=== PATIENT | female | born 1980 | race Caucasian/White ===

== ENCOUNTER → 2025-03-31 | Emergency (ER) | payer MEDICAID, OTHER ==
[~2025-03-31] VITALS: Ht 167.6 cm; Wt 41.6 kg
[~2025-03-31] MED LIST: ALBU10.7; HYDR-3972 PO
[2025-03-31 14:32] VITALS: BP 133/90; PULSE 78; RESP 18; TEMP 98.7; O2SAT 98
--- NOTE | 2025-03-31 14:50 | Physician Documentation ---
HPI ~ General Chief Complaint: Medication Refill Stated Complaint: GURMEET DELEON Time Seen by MD: 14:51 History of Present Illness HPI Comments This is a 44-year-old female who presents to the emergency department requesting a refill of [place] for her chronic pain, patient reports that she was prescribed medication by a physician in [place] however she recently moved to the area in his not reestablished care. Patient reports that she is not completely out of the medication and has a bottle containing some [place] in the triage room. Patient reports no other acute symptoms or concerns though does report that she has not had a meal in 24 hours. Medication Reconciliation Allergies: Coded Allergies: chlorhexidine (Verified Allergy, Severe, SWELLING, RASH, 03/31/25) latex (Verified Allergy, Severe, BLISTER, RASH, SWELLING, 03/31/25) morphine (Verified Allergy, Severe, VISON LOSS, HEARING LOSS, 03/31/25) Scheduled PRN Hydrocodone Bit/Acetaminophen (Hydrocodon-Acetaminophn 10-325 tablet), 1 TAB PO Q6H PRN for severe pain, (Reported) Miscellaneous Medications Albuterol Sulfate/Budesonide (Airsupra 90-80 Mcg Inhaler), (Reported) Past Medical History Past Medical History: Chronic Pain Review of Systems ROS As stated above in the HPI, otherwise all systems are reviewed and negative. Physical Exam Physical Exam Vital Signs: Temperature: 98.7, Source: Oral, Heart Rate: 78, Respiratory Rate: 18, BP: 133/90, Pulse Oximetry: 98, Weight: 41.600 Oxygen Flow Rate: 0 Physical Exam VITALS: Reviewed and as above. GENERAL: Alert, nontoxic appearing, no apparent distress. RESPIRATORY: No increased work of breathing, no respiratory distress, speaking in full clear sentences NEURO: GCS 15 PSYCH: Normal mood and affect, non agitated, reporting no HI or SI Progress Progress Note After exam in triage I was contacted by the patient's son who reports patient has been having episodes of unusual behavior and reports that she had to be driven in by the police department after she called the police due the patient believing that he was kidnapping her, law enforcement did not place the patient on a mental health hold and did not place the patient under rest. Results/Orders Results/Orders Vital Signs 03/31/25 14:32 Temp 98.7 Pulse 78 Resp 18 B/P (MAP) 133/90 Pulse Ox 98 O2 Flow Rate 0 Medical Decision Making Additional information obtaine: family, N/A Findings This is a 44-year-old female history of chronic pain who presented requesting a refill of [place] and requesting food, patient was provided food by nursing staff and informed that due to her having some [place] left have to follow up with her prescribing physician for refill of this medication as it is not typically our practice to prescribe opioid medications for chronic pain from the emergency department. Patient was otherwise well-appearing reporting no acute symptoms or concerns including reporting no HI or SI therefore was deemed to not have an acute medical or psychological emergency was appropriate for discharge. After patient received a medical screening exam and was placed back in emergency department lobby to await discharge paperwork and food from nursing staff I was contacted by the patient's son who reported the patient has been having episodes of unusual behavior which she has been evaluated for without findings, he additionally reported that she had to be brought in by law enforcement today due to her believe that he was a stranger that was kidnapping her though patient did not report any of this to me and when I attempted to contact the patient in the lobby she had eloped prior to discharge paperwork. Differential Dx:Considerations: Include: Adverse circumstances, Economic, Psychosocial, Medical services unavail., Medication refill, Medication non- compliance Departure Time of Disposition: 15:00 Disposition: 01 HOME / SELF CARE / HOMELESS Impression: Primary Impression: Chronic pain Qualified Codes: G89.29 - Other chronic pain Condition: Improved Discharge Instructions: Medical Screening Exam, Medicine Refill at the Emergency Department Additional Instructions: Unfortunately I am unable to refill your prescription of [place] today as you have an active prescription and must have this medication refilled by the previously prescribed position or your primary care provider. We have provided you food today, you may also contact the [facility] [place] for homeless services. Please follow up with your primary care provider in the next few days. Please return to the emergency department for any new or worsening concerning symptoms. Education Educated: Patient Educated regarding: diagnosis, treatment, prognosis, need for follow up Signature Scribe Signature: No scribe Attestation: The note accurately reflects work and decisions made by me.BANDAR Lane 04/01/25 02:02 RICHIE GOODMAN Mar 31, 2025 14:50
== END | disposition home or self-care (01) ==
LOC: ER 14:08
DX: G89.29 Other chronic pain (principal); Z76.0 Encounter for issue of repeat prescription; Z88.5 Allergy status to narcotic agent; Z91.040 Latex allergy status
CPT/HCPCS: 99282